=== PATIENT | male | born 1970 | race Caucasian/White ===

== ENCOUNTER 2024-05-21 17:31 | Emergency (ER) | payer BC, SELFPAY ==
[2024-05-21 17:33] VITALS: BP 127/81; PULSE 95; RESP 16; TEMP 36.5; O2SAT 98
[2024-05-21 17:56] VITALS: BP 130/96; PULSE 90; O2SAT 98
--- NOTE | 2024-05-21 18:00 | ED_ITS ---
HPI - Chest Pain 2 General: Chief Complaint: Abdominal Pain Stated Complaint: vomiting, fever (food poison) abd pain Time Seen by Provider: 05/21/24 17:41 History of Present Illness: Anatoly Shoemaker is a 54-year-old male that presents to the emergency department with abdominal pain, chest pain, nausea vomiting and near syncope. Patient reports he is up here from [facility] visiting his mother's property for hunting. He came home from hunting yesterday and had dinner at about 6 PM. His mother reports they went to bed and she heard him vomiting at about 0 200. Patient reports he now has diarrhea. Describes diffuse abdominal pain as well as left-sided chest pain. Has a significant cardiac history. Has atrial fibrillation, CAD, atherosclerosis, hyperlipidemia, hypertension. He is had 3 stents placed. Associated symptoms: Reports abdominal pain, nausea, palpitations and vomiting; Deny dyspnea or fever(s) Related Data Home Medications Medication Instructions Recorded Confirmed albuterol sulfate 90 mcg/actuation g inhalation 04/19/23 04/19/23 aerosol inhaler amlodipine 10 mg tablet ea PO 04/19/23 04/19/23 apixaban 5 mg tablet (Eliquis) tab PO 04/19/23 04/19/23 atorvastatin 80 mg tablet tab PO 04/19/23 04/19/23 clopidogrel 75 mg tablet tab PO 04/19/23 04/19/23 ezetimibe 10 mg tablet ea PO 04/19/23 04/19/23 isosorbide mononitrate 30 mg ea PO 04/19/23 04/19/23 tablet,extended release 24 hr metoprolol succinate 50 mg ea PO 04/19/23 04/19/23 tablet,extended release 24 hr montelukast 10 mg tablet tab PO 04/19/23 04/19/23 pantoprazole 20 mg tablet,delayed tab PO 04/19/23 04/19/23 release potassium chloride 20 mEq tab PO 04/19/23 04/19/23 tablet,extended release(part/cryst) prednisone 10 mg tablet tab PO 04/19/23 04/19/23 Previous Rx's Medication Instructions Recorded doxycycline hyclate 100 mg tablet 100 mg PO BID 5 days #10 tabs 04/19/23 ondansetron 4 mg disintegrating 4 mg PO Q8H 5 days #15 tabs 05/21/24 tablet Allergies Allergy/AdvReac Type Severity Reaction Status Date / Time Latex, Natural Rubber Allergy ALGY-Rash Verified 05/21/24 17:39 Iodinated Contrast Media AdvReac Severe ADR-Gastrointestinal Verified 05/21/24 17:39 Upset Review of Systems 2 General: Reports: 10 or more systems reviewed and unremarkable except in HPI and below Const: Denies: fever(s), chills, change in appetite, change in weight, fatigue or malaise Eyes: Denies: change in vision, eye discomfort, eye discharge or eye redness ENMT: Denies: throat pain, enlarged tonsils, odynophagia, hoarseness, ear or mastoid pain, ear discharge, change in hearing, tinnitus, nasal discharge, nasal congestion, post nasal drip or sinus pain Card: Reports: chest pain, palpitations, irregular heart rhythm and pre- syncope; Denies: edema, dyspnea on exertion, orthopnea or leg pain with exertion Resp: Denies: dyspnea, productive cough, non-productive cough, wheezing, stridor or chest congestion GI: Reports: abdominal pain, nausea, vomiting, diarrhea and GI cramping; Denies: dysphagia, constipation, bloating or hematochezia : Denies: flank pain, dysuria, urinary frequency, urinary urgency, urinary hesitancy, oliguria or hematuria Musc: Denies: neck pain, back pain, extremity pain, joint pain, joint swelling, joint redness, joint warmth or muscle weakness Skin/Breast: Denies: rash, pruritus, erythema, photosensitivity or new lesions Neuro: Denies: headache(s), numbness in extremities, weakness in extremities, sensory changes, lack of coordination, difficulty walking, frequent falls, dizziness, confusion, Slurred speech present, difficulty communicating thoughts, seizure-like activity or involuntary movements Endo: Denies: polyuria, polydipsia or tired all the time Dipesh/Lymph: Denies: easy bruising or easy bleeding Physical Exam 2 Const: COMMON NORMALS: no acute distress, patient oriented x3 and alert G ENERAL APPEARANCE: cooperative ORIENTATION/CONSCIOUSNESS: Yes awake, Yes oriented to person, Yes oriented to place and Yes oriented to time HENMT: COMMON NORMALS: normocephalic and atraumatic HEAD & SCALP: n ormocephalic and atraumatic FACE & SINUS: normal facial exam MOUTH: Normal oral and palatal mucosa present THROAT: posterior oropharynx normal Eye: COMMON NORMALS: Equal, round and reactive pupils present, EOMs intact bilaterally, conjunctivae normal and no scleral icterus GENERAL EYE: a ppearance normal, both eyes and all related structures ALIGNMENT: Yes alignment normal PERIORBITAL: periorbital findings normal CONJUNCTIVA: Yes conjunctivae normal PUPIL: Yes Equal, round and reactive pupils present Neck/C-Spine: COMMON NORMALS: full ROM GENERAL: Yes normal visual inspection Lymph: LYMPHATIC: no lymphadenopathy noted Chest: COMMONS NORMALS: normal inspection of the chest Breast/axilla inspection: Yes no chest deformity, asymmetry, normal contours, no nodules, masses, tenderness Resp: COMMON NORMALS: normal respiratory effort, No retractions, No use of accessory muscles and clear to auscultation bilaterally EFFORT & INSPECTION: Yes able to speak in complete sentences and Yes symmetric chest movement A USCULTATION: clear to auscultation bilaterally Cardio: COMMON NORMALS: regular rate, regular rhythm and Peripheral pulses 2+ throughout RATE: regular rate RHYTHM: regular rhythm PERIPHERAL PULSES: Peripheral pulses 2+ throughout GI: COMMON NORMALS: Normal to inspection, nondistended, normoactive bowel sounds present, Soft to palpation, non-tender and No hepatosplenomegaly present INSPECTION: Yes normal to inspection AUSCULTATION: Yes normoactive bowel sounds PALPATION: Yes Soft to palpation and Yes No hepatosplenomegaly present RECTAL EXAM: Yes deferred Extremity: COMMON NORMALS: normal to inspection GENERAL: Yes normal exam except as noted Neuro: COMMON NORMALS: patient oriented x3 SENSORIUM/ORIENTATION: Yes alert, Yes oriented to person, Yes oriented to place and Yes oriented to time CRANIAL NERVES: Yes CN normal except as noted Psych: COMMON NORMALS: mental status grossly normal, Normal thought process present, cooperative, activity/motor behavior normal, denies homicidal ideation and denies suicidal ideation THOUGHT PROCESS: Normal thought process present Skin: COMMON NORMALS: no rashes or lesions noted, no wounds and turgor normal GENERAL SKIN EXAM: no rashes or lesions noted and turgor normal Course 2 Vital Signs: Vital signs: Vital Signs Temperature 97.7 F 05/21/24 17:33 Pulse Rate 89 05/21/24 18:31 Respiratory Rate 20 H 05/21/24 18:24 Blood Pressure 121/85 05/21/24 18:31 Pulse Oximetry 97 05/21/24 18:31 Oxygen Delivery Me thod Room Air 05/21/24 18:31 MDM - Chest Pain Medical Decision Making Patient is seen 54-year-old man with complex medical history. He presents with send 24-hour history of abdominal cramping, nausea vomiting and now diarrhea. In spite of his symptoms appearing to be more GI related, he does have significant cardiac history and therefore recommended cardiac evaluation. Patient has a history of atrial fibrillation. Here in the emergency department we obtained 2 EKGs which revealed that he was in sinus rhythm and without ectopy, ST elevation or abnormal T wave inversion. The EKGs were completed at 1754 and then 2019. Laboratory evaluation included CBC, CMP, troponin series, magnesium, lactic acid. Patient had no anemias, leukocytosis, electrolyte abnormalities. Specifically his potassium and his magnesium were normal. His troponin initially was 8 followed by a delta of -1.6. His chest x-ray was unremarkable And he underwent a CT abdomen pelvis with contrast. Patient did require treatment due to contrast allergy. CT abdomen pelvis was normal Recommend patient follow-up with his primary care as well as cardiology. I do not think he needs to stay here in the emergency department. 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 Patient is agreeable and all questions were answered Lab Data 05/21/24 18:03 05/21/24 18:03 Radiology Impressions Chest X-Ray 05/21/24 18:02 IMPRESSION: No acute findings. Abdomen/Pelvis CT 05/21/24 18:32 IMPRESSION: 1. No bowel obstruction or inflammatory process associated with the bowel. 2. No free air or significant free fluid in the abdomen or pelvis. 3. No evidence of appendicitis. Laboratory Results WBC 9.50 10^3/uL (3.29-11.43) 05/21/24 18:03 RBC 4.33 10^6/uL (3.85-5.65) 05/21/24 18:03 Hgb 13.80 g/dL (11.27-16.99) 05/21/24 18:03 Hct 40.8 % (37-53) 05/21/24 18:03 MCV 94.2 fl (82-101) 05/21/24 18:03 MCH 31.9 pg (27-33) 05/21/24 18:03 MCHC 33.8 g/dL (30-55) 05/21/24 18:03 RDW 14.0 % (12.1-15.1) 05/21/24 18:03 Plt Count 197 10^3/cmm (157-399) 05/21/24 18:03 MPV 9.4 fL (7.4-10.4) 05/21/24 18:03 Neut % (Auto) 86.8 % 05/21/24 18:03 Lymph % (Auto) 8.2 % 05/21/24 18:03 Kaufman % (Auto) 4.4 % 05/21/24 18:03 Eos % (Auto) 0.1 % 05/21/24 18:03 Baso % (Auto) 0.2 % 05/21/24 18:03 Neut # (Auto) 8.24 10^3/uL (1.8-7.7) H 05/21/24 18:03 Lymph # (Auto) 0.8 10^3/uL (0.8-4.8) 05/21/24 18:03 Kaufman # (Auto) 0.4 10^3/uL (0.2-0.9) 05/21/24 18:03 Eos # (Auto) 0.0 10^3/uL (0.0-0.8) 05/21/24 18:03 Baso # (Auto) 0.0 10^3/uL (0.0-0.1) 05/21/24 18:03 Nucleated RBC % (auto) 0 % 05/21/24 18:03 Nucleated RBCs # 0.0 /100WBC 05/21/24 18:03 D-Dimer 0.59 ug/mLFEU (0-0.59) 05/21/24 18:03 Sodium 137 mmol/L (136-145) 05/21/24 18:03 Potassium 4.6 mmol/L (3.5-5.1) 05/21/24 18:03 Chloride 99 mmol/L (98-107) 05/21/24 18:03 Carbon Dioxide 20 mmol/L (22-29) L 05/21/24 18:03 Anion Gap 22.6 (5-19) H 05/21/24 18:03 BUN 19 mg/dL (6-20) 05/21/24 18:03 Creatinine 0.7 mg/dL (0.7-1.2) 05/21/24 18:03 GFR Calculation 118.0 mL/min (90-130) 05/21/24 18:03 Glucose 112 mg/dL (65-115) 05/21/24 18:03 Calculated Osmolality 287 mOsm/kg (285-295) 05/21/24 18:03 Calcium 9.6 mg/dL (8.5-10.5) 05/21/24 18:03 Magnesium 1.9 mg/dL (1.7-2.3) 05/21/24 18:03 Total Bilirubin 0.6 mg/dL (0.15-1.2) 05/21/24 18:03 AST 58 U/L (0-40) H 05/21/24 18:03 ALT 42 U/L (0-41) H 05/21/24 18:03 Alkaline Phosphatase 104 U/L (40-130) 05/21/24 18:03 Troponin T Baseline 8 ng/L (0-15) 05/21/24 18:03 Troponin T 120 Minute 6.73 ng/L (0-15) 05/21/24 20:28 Delta Troponin T -1.27 ABS# (0-10) L 05/21/24 20:28 Total Protein 7.5 g/dL (6.6-8.7) 05/21/24 18:03 Albumin 4.1 g/dL (3.5-5.2) 05/21/24 18:03 Globulin 3.4 g/dL (1.3-4.6) 05/21/24 18:03 Lipase 43 U/L (13-60) 05/21/24 18:03 All radiology interpretation(s) finalized by discharge Discharge Plan Discharge Patient Disposition: Home Clinical Impression: Gastroenteritis Condition: Stable Prescriptions: New ondansetron 4 mg tablet,disintegrating 4 mg PO Q8H 5 Days Qty: 15 0RF No Action potassium chloride 20 mEq tablet,ER particles/crystals PO atorvastatin 80 mg tablet PO ezetimibe 10 mg tablet PO Eliquis 5 mg tablet PO albuterol sulfate 90 mcg/actuation HFA aerosol inhaler inhalation isosorbide mononitrate 30 mg tablet extended release 24 hr PO clopidogrel 75 mg tablet PO pantoprazole 20 mg tablet,delayed release (DR/EC) PO amlodipine 10 mg tablet PO metoprolol succinate 50 mg tablet extended release 24 hr PO montelukast 10 mg tablet PO prednisone 10 mg tablet PO doxycycline hyclate 100 mg tablet 100 mg PO BID 5 Days Qty: 10 0RF Discharge Orders: Discharge ED (Routine); Ordered 05/21/24 Ordered By: Odilia Montemayor Discharge Diet: Advance as tolerated Discharge Activity: Resume usual activity Patient Instructions: Gastroenteritis (ED), Acute Nausea and Vomiting (ED), Pain Management Activity Restrictions/Additional Instructions: Please return to the emergency department for new, concerning, worsening symptoms Coding Level of Care Code ED Electronic Design Engineer for Ana Anguiano
--- NOTE | 2024-05-21 18:02 | XRR_ITS ---
PROCEDURE INFORMATION: Exam: XR Chest Exam date and time: 05/21/2024 6:12 PM Age: 54 years old Clinical indication: Chest pressure; Patient HX: C/O chest pain; Additional info: Chest pain, abdominal pain, nausea vomiting TECHNIQUE: Imaging protocol: Radiologic exam of the chest. Views: 1 view. COMPARISON: No relevant prior studies available. FINDINGS: Lungs: Unremarkable. No consolidation. Pleural spaces: Unremarkable. No pleural effusion. No pneumothorax. Heart/Mediastinum: Unremarkable. No cardiomegaly. Bones/joints: Unremarkable. XR/XR chest 1V portable [id number] IMPRESSION: No acute findings.
--- NOTE | 2024-05-21 18:03 | ECG_ITS ---
[facility] Date: [facility]24[facility]21 Pat Name: Anatoly hSoemaker Department: Room: Gender: Male Drip Molder: : 1970 Requested By: Odilia Hadley Order Number: [id number] Mary MD: Omar Alvarez M.D. Measurements Intervals Rogers Rate: 90 P: 48 ME: 133 QRS: 66 QRSD: 83 T: 69 QT: 380 QTc: 467 Interpretive Statements SINUS RHYTHM No previous ECG available for comparison Electronically Signed On 05-22-2024 20:24:12 APPARATUS ENGINEERING TECHNOLOGIST by Omar Alvarez M.D. [email or web address]
[2024-05-21 18:18] LABS: Basophils % 0.2 %; Eosinophils % 0.1 %; Hematocrit 40.8 % (37-53); Lymphocytes # 0.8 10^3/uL (0.8-4.8); Lymphocytes % 8.2 %; Mean Corpuscular HGB Conc 33.8 g/dL (30-55); Mean Corpuscular Hemoglobin 31.9 pg (27-33); Mean Corpuscular Volume 94.2 fl (82-101); Mean Platelet Volume 9.4 fL (7.4-10.4); Monocytes # 0.4 10^3/uL (0.2-0.9); Monocytes % 4.4 %; Neutrophils # 8.24 10^3/uL (1.8-7.7); Neutrophils % 86.8 %; Nucleated Red Blood Cells % 0 %; Platelet Count 197 10^3/cmm (157-399); Red Blood Count 4.33 10^6/uL (3.85-5.65)
[2024-05-21] MEDS: ondansetron 2 mg/ML SDV 2 mL 4 MG IVP (18:22)
[2024-05-21 18:24] VITALS: RESP 20
[2024-05-21] MEDS: morphine 4 mg/mL SDV 1 mL IVP (18:24)
[2024-05-21] MEDS: sodium chloride 0.9% 1,000 ML 999 ML IV (18:30)
[2024-05-21 18:31] VITALS: BP 121/85; PULSE 89; O2SAT 97
--- NOTE | 2024-05-21 18:32 | CTR_ITS ---
PROCEDURE INFORMATION: Exam: CT Abdomen And Pelvis With Contrast Exam date and time: 05/21/2024 7:07 PM Age: 54 years old Clinical indication: Nausea and vomiting; Abdominal pain; Generalized; Patient HX: C/O diffuse abd pain with n/v/d. ; Additional info: Abdominal pain, nausea vomiting TECHNIQUE: Imaging protocol: Computed tomography of the abdomen and pelvis with contrast. Radiation optimization: All CT scans at this facility use at least one of these dose optimization techniques: automated exposure control; mA and/or kV adjustment per patient size (includes targeted exams where dose is matched to clinical indication); or iterative reconstruction. Contrast material: OMNI 350; Contrast volume: 100 ml; Contrast route: INTRAVENOUS (IV); COMPARISON: CR (CHEST, ) 05/21/2024 6:12 PM RADIATION DOSE METRICS: Total DLP (mGy-cm): 479.01 FINDINGS: Liver: Normal. No mass. Gallbladder and biliary ducts: Normal. No calcified stones. No ductal dilation. Pancreas: Normal. No ductal dilation. Spleen: Normal. No splenomegaly. Adrenal glands: Normal. No mass. Kidneys and ureters: There is a nonobstructing 6 mm stone in the left kidney. No hydronephrosis or hydroureter. Stomach and bowel: Unremarkable. No obstruction. No mucosal thickening. Appendix: No evidence of appendicitis. Intraperitoneal space: Unremarkable. No free air. No significant fluid collection. Vasculature: Severe atherosclerotic disease of the abdominal aorta and iliac arteries. Lymph nodes: Unremarkable. No enlarged lymph nodes. Urinary bladder: Unremarkable as visualized. Reproductive: Unremarkable as visualized. Bones/joints: Unremarkable. No acute fracture. Soft tissues: Unremarkable. CT/CT abdomen pelvis w con* [id number] IMPRESSION: 1. No bowel obstruction or inflammatory process associated with the bowel. 2. No free air or significant free fluid in the abdomen or pelvis. 3. No evidence of appendicitis.
[2024-05-21 18:35] LABS: D Dimer 0.59 ug/mLFEU (0-0.59)
[2024-05-21 18:41] LABS: Alanine Aminotransferase 42 U/L (0-41); Albumin Level 4.1 g/dL (3.5-5.2); Alkaline Phosphatase 104 U/L (40-130); Anion Gap 22.6 (5-19); Aspartate Amino Transferase 58 U/L (0-40); Blood Urea Nitrogen 19 mg/dL (6-20); Calcium 9.6 mg/dL (8.5-10.5); Carbon Dioxide 20 mmol/L (22-29); Chloride 99 mmol/L (98-107); Creatinine Clr Calc Pharmacy 137.8757; Globulin 3.4 g/dL (1.3-4.6); Glucose 112 mg/dL (65-115); Lipase 43 U/L (13-60); Magnesium 1.9 mg/dL (1.7-2.3); Osmolality Calculated 287 mOsm/kg (285-295); Potassium 4.6 mmol/L (3.5-5.1); Sodium 137 mmol/L (136-145); Total Bilirubin 0.6 mg/dL (0.15-1.2); Total Protein 7.5 g/dL (6.6-8.7)
[2024-05-21 18:43] LABS: Troponin(5th) Baseline 8 ng/L (0-15)
[2024-05-21] MEDS: diphenhydrAMINE 50 mg/mL SDV 1mL IVP (19:02)
[2024-05-21] MEDS: methylPREDNISolone sod succ 40 mg/mL INJ IVP (19:02)
[2024-05-21] MEDS: iohexol 350 mg/mL 500 mL Btl (per mL) IV (19:07)
--- NOTE | 2024-05-21 20:03 | ECG_ITS ---
[facility] Pat Name: Anatoly Shoemaker Department: Room: Gender: Male Learning Program Manager: : 1970 Requested By: Odilia Hadley Order Number: [id number] Mary MD: Omar Alvarez M.D. Measurements Intervals [place] Rate: 76 P: 46 W[place]: 142 QRS: 58 QRSD: 88 T: 62 QT: 421 QTc: 476 Interpretive Statements SINUS RHYTHM No previous ECG available for comparison Electronically Signed On 05-22-2024 20:59:11 DAMAGE CUTTER by Omar Alvarez M.D. [email or web address]
[2024-05-21 20:49] LABS: Troponin 5 2HR 6.73 ng/L (0-15)
[2024-05-21 20:56] LABS: Troponin 5 2HR Delta -1.27 ABS# (0-10)
[2024-05-21 21:31] VITALS: BP 102/75; PULSE 82; RESP 20; O2SAT 96
[2024-05-21] MEDS: ondansetron 4 MG Tablet PO ×2 (21:31)
== END 2024-05-21 21:33 | disposition home or self-care (01) ==
PROVIDERS: Emergency Medicine; Emergency Provider Nurse Practitioner
DX: K52.9 Noninfective gastroenteritis and colitis, unspecified (principal)
CPT/HCPCS: 36415; 71045; 74177; 80053; 83690; 83735; 84484; 85025; 85378; 93005; 96374; 96375; 96376; 99285; J1200; J2270; J2405; J2919; J7030; Q0162